=== PATIENT | male | born 1985 | race Caucasian/White ===

== ENCOUNTER 2018-04-16 12:44 | Emergency (ER) | payer SELFPAY ==
[2018-04-16] VITALS (11 sets, daily range): BP systolic 117–145; BP diastolic 62–112; PULSE 72–96; RESP 16–38; TEMP 37.6; O2SAT 96–99
--- NOTE | 2018-04-16 13:18 | DI.REPORT_ITS ---
SYMPTOMS/DIAGNOSIS: COUGH, COLD SIGNS AND SYMPTOMS PA AND LATERAL CHEST: The lungs are well expanded and free of infiltrate. There is no pleural effusion. The cardiovascular structures are intact. Bilateral nipple rings are noted. SUMMARY: No evidence of acute cardiopulmonary disease.
--- NOTE | 2018-04-16 14:13 | ED.GENADUL_ITS ---
Disposition Clinical Impression: Respiratory tract infection Disposition: HOME Condition: Stable Instructions: Cold Symptoms (ED), Upper Respiratory Infection (ED) Additional Instructions: Return immediately if you have any significant change in your condition, severe shortness of breath, or difficulty breathing, or high fevers. Otherwise take medications as prescribed. If you begin running a fever you may start the antibiotic otherwise for viral illness the antibiotic will do you know good and may cause additional symptoms. If not improving after starting the antibiotic or any further concerns you may also follow-up with your primary care provider. Prescriptions: Benzonatate [Tessalon Perles] 200 mg PO Q8H PRN #20 cap PRN Reason: Cough Doxycycline [Vibramycin] 100 mg PO BID #14 cap Fluticasone Propionate [Flonase] 1 - 2 sprays NS DAILY #1 btl Referrals: Karthik Jansen [Primary Care Provider] - 1 week (Follow-up with your primary care provider for reassessment if not improving in 1 week.) Forms: Work Release Medical Decision Making - Radiology Data Radiology results: report reviewed, image reviewed - Medical Decision Making Patient presenting to the emergency department for chief complaint of cold-like symptoms for 1 week. Patient states worsening cough over the last 24 hours. There are fine crackles in the right lower lung field so plan to perform radiological imaging of the chest otherwise patient's symptoms seem more consistent with upper respiratory tract infection, postnasal drip causing cough. Due to significant amount of coughing feel that patient has some chest wall pain. Review of radiological imaging and radiologist interpretation showing normal chest x-ray I feel that patient is suffering from viral illness. Patient was recommended Tessalon Perles, Flonase, and to continue with [id number] symptomatic cough and cold treatment. Given upcoming holiday weekend and the patient is already had symptoms for 1 week I did talk to patient about pocket prescription for antibiotic of doxycycline if he begins running a fever otherwise informed him that he should not start this medication unless he has significant worsening of symptoms or fever. After discussion of diagnosis and plan of care with patient patient agreed and stated no further needs, questions , or concerns at this time. History of Present Illness - General Chief complaint: Chest Pain Stated complaint: CHEST PAINS AND A COLD FOR OVER A WEEK Time Seen by Provider: 04/16/18 12:49 Source: patient, RN notes reviewed Mode of arrival: ambulatory Limitations: no limitations - History of Present Illness Initial comments: Patient reports for the past week he has had nasal congestion, cough, sore throat. Over the last 24 hours he has noticed an increase in productivity of his cough and some chest pain with deep breathing. He does state that his significant other was recently diagnosed with pneumonia and he is concerned he may have the same. Patient states that his cough is mostly dry but occasionally the mornings he has had some productivity to it. Patient denies any recent fever chills, rash, nausea vomiting or diarrhea Onset/Timin -: week(s) Location: chest Severity scale (1-10): 7 Quality: aching Consistency: constant Improves with: none Worsens with: other (Deep breathing or coughing) Associated Symptoms: denies other symptoms Treatments Prior to Arrival: other (Multiple [id number] medications) - Related Data Benzonatate [Tessalon Perles] 200 mg PO Q8H PRN #20 cap 04/16/18 Doxycycline [Vibramycin] 100 mg PO BID #14 cap 04/16/18 Fluticasone Propionate [Flonase] 1 - 2 sprays NS DAILY #1 btl 04/16/18 Allergies Allergy/AdvReac Type Severity Reaction Status Date / Time No Known Allergies Allergy Unverified 04/16/18 12:54 Review of Systems Constitutional: malaise. denies: chills, fever ENT: as per HPI, throat pain, congestion. denies: ear pain Respiratory: see HPI, cough Cardiovascular: as per HPI, chest pain Gastrointestinal: denies: abdominal pain, nausea, vomiting, diarrhea Musculoskeletal: denies: joint swelling Skin: denies: rash Past Medical History - Past Medical History Medical history: no medical history Surgical history: no surgical history - Social History Smoking status: current everyday smoker Alcohol use: occasionally Drug use: marijuana Living Situation: lives with family General Exam - General Limitations: no limitations General appearance: alert, in no apparent distress - Head Head exam: Present: atraumatic, normocephalic, normal inspection - Eye Eye exam: Present: normal apperance - ENT ENT exam: Present: normal orophraynx, mucous membranes moist, TM's normal bilaterally, normal external ear exam - Neck Neck exam: Present: tenderness, full ROM. Absent: meningismus, lymphadenopathy - Respiratory Respiratory exam: Present: chest wall tenderness (Left chest wall), other (Fine crackles heard in right lower lung field). Absent: respiratory distress, wheezes, decreased breath sounds - Cardiovascular Cardiovascular Exam: Present: regular rate, normal rhythm, normal heart sounds. Absent: systolic murmur, diastolic murmur, rubs, gallop, clicks - Neurological Exam Neurological exam: Present: alert, oriented X3, normal gait. Absent: altered - Skin Skin exam: Present: warm, dry, normal color Course Vital Signs - 24 hr 04/16/18 04/16/18 12:51 12:57 Temperature 37.6 C H Pulse 83 Respiratory 18 18 Rate Blood Pressure 145/83 Pulse Oximetry 99
== END 2018-04-16 14:41 | disposition home or self-care (01) ==
LOC: ER 07-25 16:36
PROVIDERS: Emergency Provider Physician Assistant; PCP Family Medicine
DX: J06.9 Acute upper respiratory infection, unspecified (principal); F17.210 Nicotine dependence, cigarettes, uncomplicated
CPT/HCPCS: 93005; 99284; 71046; 93010